=== PATIENT | male | born 2000 | race Two or more races ===

== ENCOUNTER 2025-03-14 00:37 | Emergency (ER) | payer BC, OTHER ==
[~2025-03-14] VITALS: Ht 170.2 cm; Wt 105.8 kg
--- NOTE | 2025-03-14 01:23 | DVH ---
INDICATION: Low back pain COMPARISON: None TECHNIQUE: 2 views of the lumbar spine were obtained. FINDINGS: The lumbar vertebral alignment is normal. The intervertebral disc spaces are well-maintained. No significant facet arthropathy is noted. No acute fracture, vertebral compression deformity or aggressive osseous lesions. The paravertebral soft tissues are grossly unremarkable. IMPRESSION: 1. No acute fracture.
--- NOTE | 2025-03-14 01:26 | ED.PDOC ---
Back pain HPI HPI Comments This patient is a pleasant but morbidly obese 24-year-old male who arrives the ED today for evaluation of low back pain concerns for the past two days. Patient has a history of low back pain issues for several were ears due to lifting a heavy object at that time. Patient states it is usually well controlled but re inspired today and has been relentless. Patient denies any fever nausea or vomiting. Patient denies any definitive new trauma. Vital signs were stable on arrival. Chief Complaint: Back Pain Time Seen by MD: 00:44 Reviewed Notes: Nurses Notes Allergies: Coded Allergies: NO KNOWN ALLERGIES (Unverified , 03/14/25) Information Source: Patient, Friend Mode of Arrival: Wheelchair Timing: Hours Duration: Since onset Location of Back pain: (B) Lower back Severity: Severe Prehospital treatment: None Quality: Aching, Sharp, Stabbing Onset: Spontaneous History of: Chronic Back Pain Past Medical History PAST MEDICAL HISTORY: Denies Past Medical History (Other): Chronic low back pain Surgical History: Denies all surgeries Family History Family History: Reviewed,noncontributory to illness, No family hx of Cancer, No family hx of DM, No family hx of Heart victoriano, No family hx of HTN, No family hx ofKidney victoriano, No family hx of Liver victoriano, No family hx of Lung victoriano, No family hx of Stroke Social History Smoker: Non-Smoker Alcohol: Denies ETOH Use Drugs: Denies Drug Use Lives In: Home Constitutional: denies: chills, diaphoresis, fatigue, fever, malaise, sweats, weakness, others EENTM: denies: blurred vision, double vision, ear bleeding, ear discharge, ear drainage, ear pain, ear ringing, eye pain, eye redness, hearing loss, mouth pain, mouth swelling, nasal discharge, nose bleeding, nose congestion, nose pain, photophobia, tearing, throat pain, throat swelling, voice changes, others Respiratory: denies: cough, hemoptysis, orthopnea, SOB at rest, shortness of breath, SOB with excertion, stridor, wheezing, others Cardiovascular: denies: chest pain, dizzy spells, diaphoresis, Dyspnea on exertion, edema, irregular heart beat, left arm pain, lightheadedness, palpitations, PND, syncope, others Gastrointestinal: denies: abdomen distended, abdominal pain, blood streaked bowels, constipated, diarrhea, dysphagia, difficulty swallowing, hematemesis, melena, nausea, poor appetite, poor fluid intake, rectal bleeding, rectal pain, vomiting, others Genitourinary: denies: burning, dysuria, flank pain, frequency, hematuria, incontinence, penile discharge, penile sore, pain, testicle pain, testicle swelling, urgency, others Neurological: denies: dizziness, fainting, headache, left sided numbness, left sided weakness, numbness, paresthesia, pre-existing deficit, right sided numbness, right sided weakness, seizure, speech problems, tingling, tremors, weakness, others Musculoskeletal: reports: back pain; denies: gout, joint pain, joint swelling, muscle pain, muscle stiffness, neck pain, others Integumetry: denies: bruises, change in color, change in hair/nails, dryness, laceration, lesions, lumps, rash, wounds, others Allergic/Immunocompromised: denies: Difficulty Healing, Frequent Infections, Hives, Itching, others Hematologic/Lymphatic: denies: anemia, blood clots, easy bleeding, easy bruising, swollen glands, others Endocrine: denies: excessive hunger, excessive sweating, excessive thirst, excessive urination, flushing, intolerance to cold, intolerance to heat, unexplained weight gain, unexplained weight loss, others Psychiatric: denies: anxiety, bipolar disorder, depression, hopeless, panic disorder, schizophrenia, sleepless, suicidal, others Physical Exam General Appearance: Moderate Distress (Due to low back pain concerns), Obese HEENT: Normal ENT Inspection, Pharynx Normal, TMs Normal Neck: Full Range of Motion, Non-Tender, Normal, Normal Inspection Respiratory: Chest Non-Tender, Lungs Clear, No Accessory Muscle Use, No Respiratory Distress, Normal Breath Sounds Cardiovascular: No Edema, No JVD, No Murmur, No Gallop, Normal Peripheral Pulses, Regular Rate/Rhythm Breast Exam: Deferred Gastrointestinal: No Organomegaly, Non Tender, No Pulsatile Mass, Normal Bowel Sounds, Soft Genitalia: Deferred Pelvic: Deferred Rectal: Deferred Extremities: NOT DONE Musculoskeletal : Location: Bilateral Extremity Location: Back (Diffuse bilateral lumbar tenderness to palpation throughout. [id number] hypertonicity appreciated. No step-offs noted. Patient denies any saddle paresthesia. 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 Was a procedure done?: No Back Pain Differential Dx Differential Diagnosis: Other (Lumbar vertebrae fracture, degenerative disc disease, low back spasm, chronic low back pain) X-Ray, Labs, Meds, VS Vital Signs Date Time Temp Pulse Resp B/P (MAP) Pulse Ox O2 Delivery O2 Flow Rate FiO2 03/14/25 00:39 98.5 72 16 150/103 (119) 99 98.5 X-Ray, Labs, Meds, VS Comment All studies performed the ED were evaluated by me personally. Imaging studies were unremarkable for any acute fractures of the lumbar vertebrae. Patient appears to be having muscle spasms related to low back pain concerns. Advise utilizing medication as needed as well as ice therapy. Time of 1ST Reevaluation: :43 Reevaluation 1ST: Improved Consultation: PCP Patient Education/Counseling: Diagnosis, Treatment Family Education/Counseling: Diagnosis, Treatment Departure 1 Departure Time of Disposition: 01:43 Impression: Primary Impression: Low back pain Disposition: HOME / SELF CARE / HOMELESS Condition: Stable Additional Instructions: Advise utilizing medication as needed for symptomatic relief as well as ice therapy. Patient should follow up with primary care provider for long-term management of his low back pain concerns. e-Prescriptions Hydrocodone-Acetaminophen (Hydrocodone Bitartrate/AC 10-325 mg) 1 Tab Tab 1 TAB PO Q8HP PRN, #10 TAB Prov: RUTHIE KHAN PAC 03/14/25 Ibuprofen Micronized (Ibuprofen) 800 Mg Tab 800 MG PO Q8HP PRN, #30 TAB Prov: RUTHIE KHAN PAC 03/14/25 Discharged With: Self, Friend Critical Care Note Critical Care Time?: No Stability Stability form required: No Heart Score Heart Score: Heart Score Response (Comments) Value History N/A 0 EKG N/A 0 Age N/A 0 Risk Factors N/A 0 Troponin N/A 0 Total 0 RUTHIE KHAN PAC Mar 14, 2025 01:26
[2025-03-14] MEDS ORDERED: IBUP-1455 PO (01:44)
[2025-03-14] MEDS ORDERED: HYDR-4798 PO (01:44)
[2025-03-14 02:10] VITALS: BP 139/89; PULSE 82; RESP 18; TEMP 98.1; O2SAT 98
[2025-03-14] MEDS: HYDROcodone-ACET 10/325MG TAB PO ONE (02:15)
[2025-03-14] MEDS: KETOROLAC TROMETH 60MG/2ML VIAL IM ONE (02:15)
== END 2025-03-14 02:20 | disposition home or self-care (01) ==
LOC: ER 00:37
DX: G89.29 Other chronic pain (principal); M54.50 Low back pain, unspecified
CPT/HCPCS: 72100; 96372; 99283; J1885